=== PATIENT | male | born 1940 | race African-American/Black ===

== ENCOUNTER 2018-04-30 11:10 | Outpatient (CLI) | payer MEDICARE ==
[2018-04-30 13:00] LABS: Bilirubin Negative (Negative); Blood, Urine Trace (Negative); Clarity Clear (Clear); Glucose, Urine (Dipstick) Negative (Negative); Leukocyte Negative (Negative); Nitrite Negative (Negative); Protein, Urine (Dipstick) Negative (Neg-Trace); Specific Gravity, Urine 1.015 (1.005-1.030); Urobilinogen 0.2 mg/dL (0.2-1.0)
== END 2018-04-30 11:11 | disposition home or self-care (01) ==
LOC: MADLAB 11:10
PROVIDERS: ATTEND Family Medicine
DX: N39.0 Urinary tract infection, site not specified (principal)
CPT/HCPCS: 81003